=== PATIENT | female | born 1980 | race Caucasian/White ===

== ENCOUNTER 2021-03-01 04:08 | Emergency (ER) | payer OTHER, MEDICAID ==
[~2021-03-01] VITALS: Ht 157.5 cm; Wt 59.0 kg
[2021-03-01] MEDS ORDERED: IBU800 MG PO (04:23)
[2021-03-01] MEDS ORDERED: OMEPRAZOLE40 MG PO (04:23)
[2021-03-01] MEDS ORDERED: SUBOXONE 8 MG-1 EAC3 SUBLING (04:23)
[2021-03-01] MEDS ORDERED: ADDERALL 30 MG30 MG PO (04:24)
[2021-03-01] MEDS ORDERED: ACETAMINOPHEN500 M1 PO (04:27)
[2021-03-01 05:05] LABS: URINE BILIRUBIN NEGATIVE (Negative); URINE BLOOD NEGATIVE (Negative); URINE CLARITY CLEAR; URINE COLOR YELLOW; URINE GLUCOSE-RANDOM NEGATIVE (Negative); URINE KETONES TRACE (Negative); URINE LEUKOCYTES-REFLEX NEGATIVE (Negative); URINE NITRITE-REFLEX NEGATIVE (Negative); URINE PROTEIN NEGATIVE (Negative); URINE SPECIFIC GRAVITY >= 1.030 (1.005-1.030); URINE UROBILINOGEN 0.2 E.U./dl (0.2-1.0)
[2021-03-01 05:13] LABS: AMP/METHAMP Negative (Negative); BARBITURATES Negative (Negative); BENZODIAZEPINES Negative (Negative); COCAINE Negative (Negative); METHADONE Negative (Negative); OPIATES Negative (Negative); PCP Negative (Negative); THC Negative (Negative)
[2021-03-01] MEDS ORDERED: PREDNISONE50 MG PO (05:30)
[2021-03-01] MEDS ORDERED: HYDROXYZINE HCL25 M2 PO (06:02)
[2021-03-01 06:19] VITALS: BP 118/77
== END 2021-03-01 06:20 | disposition home or self-care (01) ==
LOC: M.ERS 04:08
PROVIDERS: Emergency Medicine
DX: T78.40XA Allergy, unspecified, initial encounter (principal); Z79.899 Other long term (current) drug therapy; X58.XXXA Exposure to other specified factors, initial encounter